=== PATIENT | female | born 1995 | race Caucasian/White ===

== ENCOUNTER 2018-05-12 17:04 | Emergency (ER) | payer BC, OTHER ==
[2018-05-12] MEDS ORDERED: Sodium Chloride 0.9% 10 ML Syringe FLUSH PRN (18:42)
--- NOTE | 2018-05-12 18:44 | EDM.PDOC ---
ED HPI GENERAL MEDICAL PROBLEM - General Chief Complaint: Abdominal Pain Stated Complaint: PAIN / APPENDIX Time Seen by Provider: 05/12/18 18:43 Source of Information: Reports: Patient History Limitations: Reports: No Limitations - History of Present Illness INITIAL COMMENTS - FREE TEXT/NARRATIVE: Patient is a 22-year-old female presents ED complaining of right upper quadrant abdominal pain since Saturday. Patient states the discomfort comes on after eating. She's had a poor appetite since onset. She denies any acid reflux. She denies any change in stool pattern of concern. She's had normal bowel movements. No increased flatulence. No dysuria, sob, chest pain, nausea vomiting , fever, chills, or abnormal vaginal discharge. She has no previous past medical history and currently on no medications minus implantable control. She has no history of DVT or PE. Denies any history of hemoptysis. She' s had no abdominal surgeries. Right Upper Abdominal Pain Score (Numeric/FACES): 8 - Related Data Allergies Allergy/AdvReac Type Severity Reaction Status Date / Time No Known Allergies Allergy Verified 05/12/18 18:08 Past Medical History - Past Health History Medical/Surgical History: Denies Medical/Surgical History ED ROS GENERAL - Review of Systems Review Of Systems: ROS reveals no pertinent complaints other than HPI. ED EXAM, GI/ABD - Physical Exam Exam: See Below Exam Limited By: No Limitations General Appearance: Alert, WD/WN, No Apparent Distress Ears: Hearing Grossly Normal Nose: Normal Inspection Throat/Mouth: Normal Voice, No Airway Compromise Head: Atraumatic, Normocephalic Neck: Normal Inspection, Supple Respiratory/Chest: No Respiratory Distress, Lungs Clear, Normal Breath Sounds, No Accessory Muscle Use, Chest Non-Tender Cardiovascular: Normal Peripheral Pulses, Regular Rate, Rhythm, No Murmur GI/Abdominal Exam: Normal Bowel Sounds, Soft, No Organomegaly, No Distention, Tender (RUQ) (Female) Exam: Deferred Back Exam: Normal Inspection. No: CVA Tenderness (L), CVA Tenderness (R) Extremities: Normal Inspection, Normal Range of Motion, Non-Tender, No Pedal Edema, Normal Capillary Refill Neurological: Alert, Oriented, CN II-XII Intact, Normal Cognition Psychiatric: Normal Affect, Normal Mood Skin Exam: Warm, Dry, Intact, Normal Color, No Rash Course - Vital Signs Last Recorded V/S: Last Vital Signs Temp 99.1 F 05/12/18 18:06 Pulse 70 05/12/18 18:06 Resp 16 05/12/18 18:06 BP 128/88 05/12/18 18:06 Pulse Ox 99 05/12/18 18:06 - Orders/Labs/Meds Orders: Active Orders 24 hr Category Date Time Status Peripheral IV Care [RC] . DIRECTED Care 05/12/18 18:42 Active Abdomen 2V AP Flat Upright [CR] Stat Exams 05/12/18 18:52 Taken Peripheral IV Insertion Adult [OM.PC] Routine Oth 05/12/18 18:42 Ordered Labs: Laboratory Tests 05/12/18 05/12/18 05/12/18 Range/Units 17:56 18:00 18:00 WBC 6.51 (3.98-10.04) K/mm3 RBC 4.76 (3.98-5.22) M/mm3 Hgb 15.0 (11.2-15.7) gm/L Hct 46.1 H (34.1-44.9) % MCV 96.8 H (79.4-94.8) fl MCH 31.5 (25.6-32.2) pg MCHC 32.5 (32.2-35.5) g/dl RDW Std Deviation 49.6 H (36.4-46.3) fL Plt Count 213 (182-369) K/mm3 MPV 11.7 (9.4-12.3) fl Neutrophils % (Manual) 50 (40-60) % Band Neutrophils % 0 (0-10) % Lymphocytes % (Manual) 34 (20-40) % Atypical Lymphs % 0 % Monocytes % (Manual) 14 H (2-10) % Eosinophils % (Manual) 2 (0.7-5.8) % Basophils % (Manual) 0 L (0.1-1.2) Platelet Estimate Adequate RBC Morph Comment Normal Sodium (136-145) mEq/L Potassium (3.5-5.1) mEq/L Chloride (98-107) mEq/L Carbon Dioxide (21-32) mEq/L Anion Gap (5-15) BUN (7-18) mg/dL Creatinine (0.55-1.02) mg/dL Est Cr Clr Drug Dosing mL/min Estimated GFR (MDRD) (>60) mL/min BUN/Creatinine Ratio (14-18) Glucose (74-106) mg/dL Calcium (8.5-10.1) mg/dL Total Bilirubin (0.2-1.0) mg/dL AST (15-37) U/L ALT (14-59) U/L Alkaline Phosphatase (46-116) U/L C-Reactive Protein (<1.0) mg/dL Total Protein (6.4-8.2) g/dl Albumin (3.4-5.0) g/dl Globulin gm/dL Albumin/Globulin Ratio (1-2) Urine Color Light yellow (Yellow) Urine Appearance Clear (Clear) Urine pH 6.5 (5.0-8.0) Ur Specific [place] 1.025 (1.005-1.030) Urine Protein Negative (Negative) Urine Glucose (UA) Negative (Negative) Urine Ketones Negative (Negative) Urine Occult Blood Negative (Negative) Urine Nitrite Negative (Negative) Urine Bilirubin Negative (Negative) Urine Urobilinogen 0.2 (0.2-1.0) Ur Leukocyte Esterase 1+ H (Negative) Urine RBC Not seen (0-5) /hpf Urine WBC 10-20 H (0-5) /hpf Ur Epithelial Cells 5-10 H (0-5) /hpf Urine Bacteria Moderate H (FEW) /hpf Urine Mucus Few (FEW) /hpf Urine HCG, Qual Negative (NEGATIVE) 05/12/18 Range/Units 18:00 WBC (3.98-10.04) K/mm3 RBC (3.98-5.22) M/mm3 Hgb (11.2-15.7) gm/L Hct (34.1-44.9) % MCV (79.4-94.8) fl MCH (25.6-32.2) pg MCHC (32.2-35.5) g/dl RDW Std Deviation (36.4-46.3) fL Plt Count (182-369) K/mm3 MPV (9.4-12.3) fl Neutrophils % (Manual) (40-60) % Band Neutrophils % (0-10) % Lymphocytes % (Manual) (20-40) % Atypical Lymphs % % Monocytes % (Manual) (2-10) % Eosinophils % (Manual) (0.7-5.8) % Basophils % (Manual) (0.1-1.2) Platelet Estimate RBC Morph Comment Sodium 141 (136-145) mEq/L Potassium 3.8 (3.5-5.1) mEq/L Chloride 105 (98-107) mEq/L Carbon Dioxide 27 (21-32) mEq/L Anion Gap 12.8 (5-15) BUN 14 (7-18) mg/dL Creatinine 0.9 (0.55-1.02) mg/dL Est Cr Clr Drug Dosing 88.23 mL/min Estimated GFR (MDRD) > 60 (>60) mL/min BUN/Creatinine Ratio 15.6 (14-18) Glucose 99 (74-106) mg/dL Calcium 9.4 (8.5-10.1) mg/dL Total Bilirubin 0.3 (0.2-1.0) mg/dL AST 16 (15-37) U/L ALT 22 (14-59) U/L Alkaline Phosphatase 93 (46-116) U/L C-Reactive Protein < 0.2 (<1.0) mg/dL Total Protein 8.1 (6.4-8.2) g/dl Albumin 4.2 (3.4-5.0) g/dl Globulin 3.9 gm/dL Albumin/Globulin Ratio 1.1 (1-2) Urine Color (Yellow) Urine Appearance (Clear) Urine pH (5.0-8.0) Ur Specific [place] (1.005-1.030) Urine Protein (Negative) Urine Glucose (UA) (Negative) Urine Ketones (Negative) Urine Occult Blood (Negative) Urine Nitrite (Negative) Urine Bilirubin (Negative) Urine Urobilinogen (0.2-1.0) Ur Leukocyte Esterase (Negative) Urine RBC (0-5) /hpf Urine WBC (0-5) /hpf Ur Epithelial Cells (0-5) /hpf Urine Bacteria (FEW) /hpf Urine Mucus (FEW) /hpf Urine HCG, Qual (NEGATIVE) Meds: Medications Discontinued Medications Generic Name Dose Route Start Last Admin Trade Name Freq PRN Reason Stop Dose Admin Al Hydroxide/Mg Hydroxide 30 0 ml 05/12/18 19:06 05/12/18 19:17 ml/ Lidocaine HCl 15 ml PO 05/12/18 19:07 45 ml ONETIME ONE Administration Sodium Chloride 1,000 mls @ 250 mls/hr 05/12/18 18:45 05/12/18 18:57 Normal Saline IV 250 mls/hr ASDIRECTED RON Administration Magnesium Citrate 296 ml 05/12/18 21:03 05/12/18 21:20 Citrate Of Magnesia PO 05/12/18 21:04 296 ml ONETIME ONE Administration Sodium Chloride 10 ml 05/12/18 18:42 05/12/18 18:57 Saline Flush FLUSH 10 ml ASDIRECTED PRN Administration Keep Vein Open - Re-Assessments/Exams Free Text/Narrative Re-Assessment/Exam: Vital signs are stable. Patient is not tachycardic or hypoxic. Labs ordered prior to examination. Patient complains of right upper quadrant abdominal pain that comes on with eating. Described as a sharp crampy sensation that waxes and wanes in intensity. It will last for a few minutes. There's been no nausea, no fever, no dysuria, no acid reflux, no shortness of breath, and/or chest pain. Denies any diarrhea, bloody or dark tarry stools, abnormal vaginal discharge, and/or back pain. CBC was essentially normal. C14 was essentially normal. CRP is normal. UA indicated Leukcyte Esterase 1+, WBC's 10-20, epithelial cells 5-10, and bacteria moderate. Appears to be contaminated. Patient has no voiding symptoms at this time. HCG was negative. Ordered x-ray of the abdomen flat and upright to evaluate for stool and air pattern. Labs reviewed: CBC and chemistry panel were essentially normal. UA indicated 1+ leukocyte Estrace, urine wbc's 10-20, epithelial cells 5-10, urine bacteria moderate. There is contaminated. Patient has no voiding symptoms. X-ray of the abdomen revealed increased stool pattern throughout the ascending colon and also partially through the transverse colon. X-ray reviewed with Dr. Villarreal. Agrees with initial interpretation. Discussed labs and x-ray with the patient. Vital signs are stable. She has minimal discomfort at this time. We have elected to utilize mag citrate to clear this stool bolus. She will start MiraLAX one capful every day as well with copious amounts of water for the next 6 weeks. In addition will have patient take prilosec 40mg every a.m. 1/2 prior to eating for the next two weeks. Return precautions were discussed with the patient. She will follow up with PCP within the next 3-5 days if symptoms persist. She will return back to the ED if symptoms worsen. Departure - Departure Time of Disposition: 21:04 Disposition: Home, Self-Care 01 Condition: Good Clinical Impression: Epigastric pain Constipation Qualifiers: Constipation type: unspecified constipation type Qualified Code(s): K59.00 - Constipation, unspecified - Discharge Information Instructions: High-Fiber Diet, Constipation, Adult Referrals: PCP,Not In Area [Primary Care Provider] - Forms: ED Department Discharge, ED Return to Work/School Form Additional Instructions: Suggest taking Prilosec 40mg PO 1/2 hr to eating breakfast for the next two weeks. Stick with a bland diet. Do not eat or drink within 4 hours going to bed. Refrain from consuming caffeine beverages, chocolate, and or spicy foods. Monitor for which foods cause aggravation. Monitor for duration of symptoms and frequency as well. I will also start you on mag citrate one bottle today. Start taking MiraLAX one capful every day for the next 6 weeks. Increase your fiber in your diet as well oral intake of water. Please follow up with primary care provider in the next 3-5 days. Return to the ED if you develop any new or worsening symptoms. - My Orders Last 24 Hours: My Active Orders 05/12/18 18:42 Peripheral IV Care [RC] . DIRECTED Peripheral IV Insertion Adult [OM.PC] Routine 05/12/18 18:52 Abdomen 2V AP Flat Upright [CR] Stat - Assessment/Plan Last 24 Hours: My Active Orders 05/12/18 18:42 Peripheral IV Care [RC] . DIRECTED Peripheral IV Insertion Adult [OM.PC] Routine 05/12/18 18:52 Abdomen 2V AP Flat Upright [CR] Stat
[2018-05-12] MEDS ORDERED: Sodium Chloride 0.9% 1,000 ML IV SCH (18:45)
[2018-05-12] MEDS ORDERED: Alum Hydrox/Mag Hydrox/Simeth 30 ML, Lidocaine 2% 15 ML PO ONE ×2 (19:06)
[2018-05-12] MEDS ORDERED: Magnesium Citrate Solution 296 ML Bottle PO ONE (21:03)
--- NOTE | 2018-05-13 08:40 | CR ---
Abdomen: Supine and upright views of the abdomen were obtained. Comparison: No prior abdominal x-ray. Bowel gas pattern is normal. Calcifications are seen within the pelvis compatible with phleboliths. No free air is seen. Bony structures are unremarkable. Impression: 1. Nothing acute is seen on two-view abdominal x-ray. Diagnostic code #1
== END 2018-05-12 21:20 | disposition home or self-care (01) ==
LOC: JD.ED 17:04
DX: K59.00 Constipation, unspecified (principal)
CPT/HCPCS: 36415; 74019; 80053; 81001; 81025; 85007; 85027; 86140; 96360; 96361; 99284; A9270; J7040